=== PATIENT | female | born 1990 | race Hispanic/Latino ===

== ENCOUNTER 2022-04-07 15:22 | Outpatient (CLI) | payer OTHER | END 2022-04-07 15:23 | disposition home or self-care (01) | LOC: CSHULT 15:22 | PROVIDERS: ATTEND Advanced Practice Midwife | DX: Z34.93 Encounter for supervision of normal pregnancy, unspecified, third trimester (principal) | CPT/HCPCS: 76805 ==

== ENCOUNTER 2022-05-01 19:30 | Inpatient (IN) | payer MEDICAID, OTHER ==
[~2022-05-01 19:30] MED LIST: Bupivacaine 0.25% HCL 30 ML VIAL ONE
[2022-05-01] MEDS: Lactated Ringer's 1,000 ML IV SCH (21:17)
[2022-05-01] MEDS ORDERED: Carboprost 250 MCG/ML AMP IM PRN (22:05)
[2022-05-01] MEDS ORDERED: Ondansetron PF 4 MG/2 ML Vial IVP PRN (22:05)
[2022-05-01] MEDS ORDERED: Misoprostol 200 MCG TAB PR PRN (22:05)
[2022-05-01] MEDS ORDERED: hydrALAZINE 20 MG/ML VIAL SLOW IVP PRN (22:05)
[2022-05-01] MEDS ORDERED: Methylergonovine 0.2 MG/ML VIAL IM PRN (22:05)
[2022-05-01] MEDS ORDERED: Tranexamic Acid 1,000 MG in Sodium Chloride 0.9% 250 ML 250 ML IVPB PRN (22:05)
[2022-05-01] MEDS ORDERED: Acetaminophen 500 MG TAB PO PRN (22:05)
[2022-05-01] MEDS ORDERED: Promethazine HCl 25 MG/ML VIAL IM PRN (22:05)
[2022-05-01 22:24] VITALS: BMI 30.7
[2022-05-01 23:30] LABS: Hemoglobin 10.2 g/dL (12.0-15.5); Mean Corpuscular HGB CONC 32.5 g/dL (32.0-36.0); Mean Corpuscular Hemoglobin 25.3 pg (27.0-33.0); Mean Corpuscular Volume 77.9 fl (81.6-98.3); Mean Platelet Volume 11.6 fl (7.4-10.4); Platelet Count 192 10x3/uL (150-450); RBC Distribution Width 12.9 % (11.5-14.5); Red Blood Cell (RBC) Count 4.03 10x6/uL (3.90-5.03); White Blood Cell (WBC) Count 5.5 10x3/uL (3.5-10.5)
[2022-05-01] MEDS: Misoprostol 100 MCG TAB VAG SCH (23:41)
[2022-05-02] LABS: HBSAg Index 0.61 S/CO (0-0.99); Hep B Surf Ag Non-Reactive S/CO (NonReactive); Syphilis Antibody Nonreactive (Nonreactive); Syphilis Antibody Index 0.04 S/CO (<1.00 Non-Reactive)
[2022-05-02 00:07] LABS: SARS-CoV-2 NAA Rapid Test Not Detected (NotDetected)
[2022-05-02] MEDS: Misoprostol 100 MCG TAB VAG SCH (03:29)
[2022-05-02] MEDS: Butorphanol Tartrate 1 MG/ML VIAL SLOW IVP PRN ×2 (05:47→07:40)
[2022-05-02] MEDS: Lactated Ringer's 1,000 ML IV SCH (05:48)
[2022-05-02] MEDS ORDERED: Fentanyl 2 mcg/Bup 0.1% Cadd 100 ML ONE (07:05)
[2022-05-02] MEDS: NS w/ Oxytocin 30 units 500 ML IV SCH ×2 (07:25→08:37)
[2022-05-02] MEDS ORDERED: Lidocaine 1% (PF) 30 ML VIAL ONE (07:36)
[2022-05-02] MEDS ORDERED: Measles/Mumps/Rubella 10 MCG/0.5 ML VIAL SC ONE (08:10)
[2022-05-02] MEDS ORDERED: Bisacodyl 10 MG SUPP PR PRN ×2 (08:10→08:18)
[2022-05-02] MEDS ORDERED: Boostrix 0.5 ML (Tdap) VIAL (>/=7 yrs of age) IM ONE (08:10)
[2022-05-02] MEDS ORDERED: hydrALAZINE 20 MG/ML VIAL SLOW IVP PRN ×2 (08:10→08:18)
[2022-05-02] MEDS ORDERED: HYDROcodone/Acetaminophen 5/325 mg Tablet PO PRN (08:10)
[2022-05-02] MEDS ORDERED: Milk Of Magnesia 30 ML UDCUP PO PRN ×2 (08:10→08:18)
[2022-05-02] MEDS ORDERED: Varicella virus, LIVE 0.5 ML VIAL SC ONE (08:18)
[2022-05-02] MEDS: Ibuprofen 800 MG TAB PO SCH ×2 (08:37→17:40)
[2022-05-02] MEDS ORDERED: Docusate 100 MG CAP PO SCH (09:00)
[2022-05-02] MEDS: Docusate 100 MG CAP PO SCH (10:01)
[2022-05-02] MEDS ORDERED: Ferrous Sulfate 325 MG TAB PO SCH (17:00)
[2022-05-02] MEDS: Ferrous Sulfate 325 MG TAB PO SCH (17:01)
[2022-05-03 04:12] LABS: Hemoglobin 9.5 g/dL (12.0-15.5)
[2022-05-03] MEDS: Ibuprofen 800 MG TAB PO SCH (04:38)
[2022-05-03] MEDS: Docusate 100 MG CAP PO SCH ×2 (05:42→08:21)
[2022-05-03] MEDS ORDERED: Ibuprofen 800 MG TAB PO SCH (06:00)
[2022-05-03 07:46] VITALS: BP 117/58; TEMP 98
[2022-05-03] MEDS: Misoprostol 100 MCG TAB VAG SCH (07:51)
[2022-05-03] MEDS: Ferrous Sulfate 325 MG TAB PO SCH (08:21)
[2022-05-05] MEDS ORDERED: Measles/Mumps/Rubella 10 MCG/0.5 ML VIAL SC ONE (08:45)
[2022-05-05] MEDS ORDERED: Boostrix 0.5 ML (Tdap) VIAL (>/=7 yrs of age) IM ONE (08:45)
[2022-05-05] MEDS ORDERED: Varicella virus, LIVE 0.5 ML VIAL SC ONE (08:45)
== END 2022-05-03 14:00 | disposition home or self-care (01) | DRG 807 ==
LOC: CSHLD 21:07 → CSHPP 05-02 09:40
PROVIDERS: ADMIT Family Medicine; ATTEND Family Medicine
PROC: 3E033VJ Introduction of Other Hormone into Peripheral Vein, Percutaneous Approach (ICD-10-PCS; principal; 2022-05-02)
PROC: 10E0XZZ Delivery of Products of Conception, External Approach (ICD-10-PCS; 2022-05-02)
PROC: 0KQM0ZZ Repair Perineum Muscle, Open Approach (ICD-10-PCS; 2022-05-02)
DX: O70.1 Second degree perineal laceration during delivery (principal); Z37.0 Single live birth; Z3A.40 40 weeks gestation of pregnancy; Z20.822 Contact with and (suspected) exposure to COVID-19
CPT/HCPCS: 36415; 85014; 85018; 85027; 86780; 86850; 86900; 86901; 87340; J0595; J2590; J7120; S0020; U0002